=== PATIENT | female | born 1940 | race Caucasian/White ===

== ENCOUNTER 2020-03-27 20:45 | Inpatient (IN) | payer MEDICARE ==
[~2020-03-27] VITALS: Ht 167.6 cm; Wt 74.4 kg
[~2020-03-27 20:45] MED LIST: AML5T PO; APIX5TAB PO; ASPI81CH43 PO; ATOR20TA50 PO; LISI-275 PO; METO25TA5 PO; PANT40T PO
[2020-03-27 22:26] LABS: Basophils # (auto) 0 10 ^3/uL (0-0.2); Basophils % (auto) 0.4 % (0.0-2.0); Eosinophils # (auto) 0.1 10 ^3/uL (0-0.8); Eosinophils % (auto) 0.7 % (0.0-7.0); Hematocrit 39.2 % (36.0-46.0); Hemoglobin 13.2 g/dL (12.2-16.2); Lymphocytes # (auto) 0.4 10 ^3/uL (0.4-5.4); Lymphocytes % (auto) 4.5 % (10.0-50.0); Mean Corpuscular Hemoglobin 31.6 pg (28.0-32.0); Mean Corpuscular Hgb Conc. 33.6 g/dL (32.0-36.0); Monocytes # (auto) 0.5 10 ^3/uL (0-1.3); Monocytes % (auto) 5.6 % (0.0-12.0); Neutrophils # (auto) 8.4 10 ^3/uL (1.6-8.6); Neutrophils % (auto) 88.8 % (37.0-80.0); Platelet Count (auto) 291 10^3/uL (140-450); Red Blood Cells 4.17 10^6/uL (4.0-5.20); Red Cell Distribution Width 14.6 % (11.8-14.3); White Blood Cell 9.5 10^3/uL (4.4-10.8)
[2020-03-27 22:45] LABS: Albumin 3.2 g/dL (3.4-5.0); Calcium 8.3 mg/dL (8.5-10.1); Potassium 3.9 mmol/L (3.5-5.1)
[2020-03-27] MEDS ORDERED: ONDANSETRON HCL 4 MG/2 ML VIAL IV ONE (22:45)
[2020-03-27] MEDS ORDERED: SODIUM CHLORIDE 0.9% 1,000 ML IV ONE (22:45)
[2020-03-27] MEDS ORDERED: MORPHINE SULFATE 4 MG/ML SYR/VIAL IV ONE (22:45)
[2020-03-27 22:47] LABS: BUN/Creatinine Ratio 26.5; Bilirubin, Total 1.1 mg/dL (0.2-1.0); Total Protein 6.6 g/dL (6.4-8.2)
[2020-03-27 23:43] LABS: INR 1.06 (0.9-1.15); Partial Thromboplastin Time 28.5 sec (23.0-31.2)
[2020-03-28] MEDS ORDERED: ACETAMINOPHEN 325 MG TAB PO PRN
[2020-03-28] MEDS ORDERED: MORPHINE SULFATE 4 MG/ML SYR/VIAL IV PRN
[2020-03-28] MEDS ORDERED: MORPHINE SULF INJ 2 MG/ML SYRINGE 1ML IV PRN
[2020-03-28] MEDS ORDERED: DOCUSATE SOD 100 MG CAP PO PRN
[2020-03-28] MEDS ORDERED: ONDANSETRON HCL 4 MG/2 ML VIAL IV PRN
[2020-03-28] MEDS ORDERED: NITROGLYCERIN 0.4 MG SL TAB SL PRN
--- NOTE | 2020-03-28 01:15 | NUR ---
Patient Brought to Unit via Stretcher from ER w/ belongings Patient is AOx3. Lethargic and in pain. Patient having moments of confusion when asked questions. Patient pain level currently at 5/10. Patient pain level increased upon movement from stretcher to bed. Patient given [place] pain medication as prescribed for pain. Morphine is not due, patient aware but forgetful. Bed is locked in lowest position, no s/s of SOB but pain is present. Patient call light within reach, patient in room by nursing station for monitoring. Tele #[id number].
[2020-03-28] MEDS: SODIUM CHLORIDE 0.9% 1,000 ML IV SCH ×2 (01:25→16:40)
[2020-03-28] MEDS: HYDROcodone-ACET 5/325MG TAB PO PRN ×4 (01:25→22:42)
[2020-03-28 02:03] VITALS: BP 125/79
[2020-03-28 05:00] VITALS: BP 97/54
[2020-03-28 06:53] LABS: Basophils # (auto) 0 10 ^3/uL (0-0.2); Basophils % (auto) 0.6 % (0.0-2.0); Eosinophils # (auto) 0.1 10 ^3/uL (0-0.8); Eosinophils % (auto) 0.7 % (0.0-7.0); Hemoglobin 12.9 g/dL (12.2-16.2); Lymphocytes # (auto) 0.5 10 ^3/uL (0.4-5.4); Lymphocytes % (auto) 6.4 % (10.0-50.0); Mean Corpuscular Hemoglobin 32.1 pg (28.0-32.0); Mean Corpuscular Hgb Conc. 34.1 g/dL (32.0-36.0); Mean Corpuscular Volume 94.1 fL (80.0-100.0); Monocytes # (auto) 0.4 10 ^3/uL (0-1.3); Neutrophils # (auto) 6.7 10 ^3/uL (1.6-8.6); Neutrophils % (auto) 87.3 % (37.0-80.0); Platelet Count (auto) 272 10^3/uL (140-450); Red Blood Cells 4.04 10^6/uL (4.0-5.20); Red Cell Distribution Width 14.7 % (11.8-14.3); White Blood Cell 7.7 10^3/uL (4.4-10.8)
[2020-03-28 07:01] LABS: Albumin 2.9 g/dL (3.4-5.0)
[2020-03-28 07:10] LABS: BUN/Creatinine Ratio 24.7; Bilirubin, Total 1.1 mg/dL (0.2-1.0); Calcium 8.4 mg/dL (8.5-10.1)
--- NOTE | 2020-03-28 07:30 | NUR ---
Opening Shift Note Assumed care of patient, awake and alert. Respirations are even and unlabored. No S/S of distress/SOB. Bed is low, locked with 2x side rails up. Call light is within reach. Bed alarm on for safety. Instructed on POC and to call for assist PRN, will continue to monitor for changes Q1hr and PRN.
[2020-03-28 08:40] VITALS: BP 106/69
--- NOTE | 2020-03-28 08:50 | NUR ---
PT eval orders received, hold PT until cleared by ortho due to R femoral fracture
[2020-03-28] MEDS: ENOXAPARIN SOD 40 MG/0.4 ML SYRINGE SC SCH (10:00)
[2020-03-28] MEDS ORDERED: FAMOTIDINE 20 MG TAB PO SCH (10:00)
[2020-03-28] MEDS: ASCORBIC ACID 500 MG TAB PO SCH ×2 (10:00→22:11)
[2020-03-28] MEDS: MULTIPLE VITAMIN TAB PO SCH (10:00)
[2020-03-28] MEDS: PANTOPRAZOLE 40 MG/10 ML VIAL INJ IV SCH (10:00)
[2020-03-28] MEDS ORDERED: AMLO5TAB15 PO (10:39)
[2020-03-28 12:44] VITALS: BP 137/76
[2020-03-28] MEDS: KETOROLAC TROMETH 30 MG/ML 1ML VIAL IV PRN (12:47)
[2020-03-28 16:34] VITALS: BP 135/75
--- NOTE | 2020-03-28 18:54 | NUR ---
COVID swab Inhouse COVID swab walked to lab by resource nurse Bailey.
--- NOTE | 2020-03-28 19:15 | NUR ---
Opening Shift Note Assumed care of patient after receiving report from day RN. Patient is awake and alert with no S/S of distress/SOB or pain. Call light within reach, bed in lowest, locked position x2 side rails. Instructed on POC and to call for assist PRN, will continue to monitor for changes Q1hr and PRN.
[2020-03-28 21:49] VITALS: BP 116/70
--- NOTE | 2020-03-29 00:09 | NUR ---
Care endorsed to ALLAN Galarza RN.
--- NOTE | 2020-03-29 00:10 | NUR ---
Report Received Received report from LAYLA Lim and assumed care of patient. Patient is asleep at this moment, no signs or symptoms of distress noted. Will continue to monitor.
[2020-03-29 05:00] VITALS: BP 130/76
[2020-03-29] MEDS: HYDROcodone-ACET 5/325MG TAB PO PRN ×3 (05:28→17:28)
--- NOTE | 2020-03-29 05:28 | NUR ---
Pain Medication Administration Patient complaining of Right hip pain 10/10. Patient requesting Burden to be administered. Will administer pain medication per MD order and will continue to monitor.
--- NOTE | 2020-03-29 06:28 | NUR ---
Pain Level Reassessment Patient asleep for pain level reassessment. No signs or symptoms of distress noted. Will continue to monitor.
--- NOTE | 2020-03-29 07:30 | NUR ---
Opening Shift Note Assumed care of patient, awake and alert. Respirations are even and unlabored. No S/S of distress/SOB. Jesus catheter is hanging below bladder, is free of kinks and draining freely to gravity. Bed is low, locked with 2x side rails up. Call light is within reach. Bed alarm on for safety. Instructed on POC and to call for assist PRN, will continue to monitor for changes Q1hr and PRN.
[2020-03-29] MEDS: KETOROLAC TROMETH 30 MG/ML 1ML VIAL IV PRN ×2 (08:11→22:47)
[2020-03-29] MEDS: ASCORBIC ACID 500 MG TAB PO SCH ×2 (08:11→21:41)
[2020-03-29] MEDS: PANTOPRAZOLE 40 MG/10 ML VIAL INJ IV SCH (08:11)
[2020-03-29] MEDS: ENOXAPARIN SOD 40 MG/0.4 ML SYRINGE SC SCH (08:11)
[2020-03-29] MEDS: MULTIPLE VITAMIN TAB PO SCH (08:11)
--- NOTE | 2020-03-29 08:19 | NUR ---
Bharat Mayes at bedside Per MD, holding home medication Eliquis since patient is having surgery on Tuesday. Discussed other home medications with MD. Received orders to continue home medications. Orders read back to verify.
[2020-03-29 08:30] VITALS: BP 128/78
--- NOTE | 2020-03-29 09:05 | NUR ---
HOLD P.T. UNTIL AFTER SURGERY.
[2020-03-29] MEDS: SODIUM CHLORIDE 0.9% 1,000 ML IV SCH ×2 (09:20→17:27)
[2020-03-29 12:40] VITALS: BP 132/70
[2020-03-29 16:31] VITALS: BP 141/78
--- NOTE | 2020-03-29 19:15 | NUR ---
Opening Shift Note Assumed care of patient after receiving report from eduard, RN. Patient is awake and alert with no S/S of distress, SOB or pain noted at this time. Call light within reach, bed in lowest, locked position x2 side rails up for safety. Instructed on POC and to call for assist PRN, will continue to monitor for changes Q1hr and PRN.
[2020-03-29 22:00] VITALS: BP 149/77
[2020-03-30] MEDS: HYDROcodone-ACET 5/325MG TAB PO PRN ×4 (00:56→15:59)
--- NOTE | 2020-03-30 01:07 | NUR ---
Repositioned, pain medication Patient given PRN Roscoe for pain 10/10 at right hip fracture site, patient is screaming out in pain and crying. PRN Roscoe intended for moderate pain 4-6. Toradol for severe 7-10/10 pain not available at this time. Patient repositioned and low lit room for comfort and relaxation. Patient now resting comfortably. Will continue to monitor.
[2020-03-30 05:00] VITALS: BP 155/87
--- NOTE | 2020-03-30 07:30 | NUR ---
Opening Shift Note Assumed care of patient, awake and alert. Patient able to communicate needs. Respirations are even and unlabored. No S/S of distress/SOB. Bed is low, locked with 2x side rails up. Call light is within reach. Bed alarm on for safety. Instructed on POC and to call for assist PRN, will continue to monitor for changes Q1hr and PRN.
[2020-03-30 08:30] VITALS: BP 138/85
[2020-03-30] MEDS: ENOXAPARIN SOD 40 MG/0.4 ML SYRINGE SC SCH (09:17)
[2020-03-30] MEDS: amLODIPine BESYLATE 5 MG TAB PO SCH (09:17)
[2020-03-30] MEDS: ASCORBIC ACID 500 MG TAB PO SCH ×2 (09:17→22:08)
[2020-03-30] MEDS: PANTOPRAZOLE 40 MG/10 ML VIAL INJ IV SCH (09:17)
[2020-03-30] MEDS: MULTIPLE VITAMIN TAB PO SCH (09:18)
[2020-03-30] MEDS: METOPROLOL TARTRATE 25 MG TAB PO SCH ×2 (09:18→22:00)
--- NOTE | 2020-03-30 09:21 | NUR ---
Dr. Bharat Mayes at bedside MD at bedside discussing POC with patient. Held Metoprolol due to decreased heart rate. MD aware of this nurse holding medication. No new orders received.
[2020-03-30 12:10] VITALS: BP 154/91
[2020-03-30] MEDS: KETOROLAC TROMETH 30 MG/ML 1ML VIAL IV PRN ×2 (13:35→19:49)
--- NOTE | 2020-03-30 14:13 | NUR ---
Nutrition Assessment Notes Please refer to link for full assessment notes. Est Energy needs: 7472-2870 kcals (20-23 kcal/kgBW) Est Protein needs: 1.0-1.1 gms/day (1.0-1.1 gm/kgBW) Will continue to monitor and reassess prn. Addendum: 03/30/20 at [address] Amended: Links added.
--- NOTE | 2020-03-30 14:43 | NUR ---
IV insertion IV access obtained, via clean sterile technique by inserting a 22 gauge catheter at the right hand. IV secured properly. No trauma to site. Patient tolerated well.
[2020-03-30 16:35] VITALS: BP 146/80
[2020-03-30] MEDS: SODIUM CHLORIDE 0.9% 1,000 ML IV SCH (18:15)
[2020-03-30 22:00] VITALS: BP 128/75
[2020-03-31 05:00] VITALS: BP 157/96
[2020-03-31] MEDS: HYDROcodone-ACET 5/325MG TAB PO PRN ×2 (06:18→11:00)
--- NOTE | 2020-03-31 07:10 | NUR ---
Assumed care of patient resting in bed with eyes closed. Respirations even and unlabored at this time. Side rails up x 2, HOB elevated at least 30 degrees, call light is within reach and bed is locked in lowest position.
--- NOTE | 2020-03-31 07:10 | NUR ---
Closing Note Patient lying in bed, awake and alert. No s/s of distress. Call light within reach. Will endorse care to dayshift RN.
[2020-03-31 08:00] VITALS: BP 142/81
[2020-03-31] MEDS: MULTIPLE VITAMIN TAB PO SCH (10:00)
[2020-03-31] MEDS: ASCORBIC ACID 500 MG TAB PO SCH ×2 (10:00→22:29)
[2020-03-31] MEDS: METOPROLOL TARTRATE 25 MG TAB PO SCH ×2 (10:00→22:00)
[2020-03-31] MEDS: amLODIPine BESYLATE 5 MG TAB PO SCH (10:03)
[2020-03-31] MEDS: PANTOPRAZOLE 40 MG/10 ML VIAL INJ IV SCH (10:14)
[2020-03-31] MEDS: SODIUM CHLORIDE 0.9% 1,000 ML IV SCH (11:20)
[2020-03-31] MEDS ORDERED: PROPOFOL 10 MG/ML 20 ML IV ONE (11:49)
[2020-03-31] MEDS ORDERED: SODIUM CHLORIDE LOCK 10 ML ONE ×2 (11:49→13:52)
[2020-03-31] MEDS ORDERED: fentaNYL CITRATE 100 MCG/2 ML VL ONE ×2 (11:49→13:07)
[2020-03-31] MEDS ORDERED: ONDANSETRON HCL 4 MG/2 ML VIAL ONE (11:49)
[2020-03-31] MEDS ORDERED: MIDAZOLAM HCL 1MG/1ML-2 ML VIAL ONE (11:49)
[2020-03-31] MEDS ORDERED: MORPHINE SULF(PF) 0.5MG/ML 10ML VIAL ONE ×2 (11:49→13:36)
[2020-03-31] MEDS ORDERED: VANCOMYCIN HCL 1000 MG VL ONE (11:52)
[2020-03-31] MEDS: BUPIVACAINE 0.25% INJ 50ML VIAL ONE ×2 (11:58→14:43)
[2020-03-31] MEDS ORDERED: TRANEXAMIC ACID 0 ML ONE (11:58)
[2020-03-31 12:00] VITALS: BP 150/86
--- NOTE | 2020-03-31 12:09 | NUR ---
PATIENT TAKEN DOWN FOR PROCEDURE
[2020-03-31] MEDS ORDERED: ceFAZolin 1GM/50ML 100 ML IV ONE (12:13)
[2020-03-31] MEDS ORDERED: TETRACAINE 1% INJ 2 ML VIAL IJ ONE (12:30)
[2020-03-31] MEDS ORDERED: ETOMIDATE (2MG/ML) 20ML VIAL IV ONE (12:41)
[2020-03-31] MEDS ORDERED: SUCCINYLCHOLINE CHLORIDE 20 MG/ML 10ML VIAL IV ONE (12:46)
[2020-03-31] MEDS ORDERED: LIDOCAINE 1% (LOCAL ANESTH.) PF 5ml SDV ONE (12:46)
--- NOTE | 2020-03-31 12:47 | NUR ---
Pt is an alert and oriented female that is pleasant and able to communicate. Pt states she resides with her family and her daughter, Kymberly is her primary caregiver. Pt states she has a scooter, w/c and fww in the home that she does use and has no nurses coming to the home. Pt states she wants to return home upon discharge and is receptive to home health physical therapy and a bs for discharge planning. Pt states she has transportation home. Will continue to monitor and provide intervention as appropriate. Addendum: 03/31/20 at 1252 by DANITZA PISANO Amended: Links added.
[2020-03-31] MEDS ORDERED: ROCURONIUM 10MG/ML 10ML VIAL IV ONE (13:00)
[2020-03-31] MEDS ORDERED: KETOROLAC TROMETH 30 MG/ML 1ML VIAL ONE ×2 (13:36→14:15)
--- NOTE | 2020-03-31 13:45 | NUR ---
patient returned to room. no distress noted at this time. continue care.
[2020-03-31] MEDS ORDERED: ePHEDrine SULFATE 50 MG/ML AMP ONE (13:52)
[2020-03-31] MEDS: LACTATED RINGER'S 1,000 ML IV SCH (14:45)
[2020-03-31] MEDS: ceFAZolin 1GM/50ML 50 ML IV SCH ×3 (14:45→22:30)
[2020-03-31] MEDS ORDERED: NALOXONE HCL 0.4 MG/ML VIAL IV PRN (15:00)
[2020-03-31] MEDS ORDERED: ONDANSETRON HCL 4 MG/2 ML VIAL IV PRN (15:00)
[2020-03-31] MEDS ORDERED: HYDROmorphone HCL 2 MG/ML VL IV PRN (15:00)
[2020-03-31 17:00] VITALS: BP 137/88
--- NOTE | 2020-03-31 19:11 | NUR ---
ENDORSED CARE TO NOC SHIFT RN
--- NOTE | 2020-03-31 19:20 | NUR ---
Opening Shift Note Assumed care of patient. Patient laying on left side w/ HOB at 30 degrees. No pain noted at this time. Patient able to communicate needs. Respirations are even and unlabored. No S/S of distress/SOB. Right Hip bandage site is dry and intact. Bed is low, locked with 2x side rails up. Call light is within reach. Bed alarm on for safety. Instructed on POC and to call for assist PRN, will continue to monitor for changes Q1hr and PRN.
--- NOTE | 2020-03-31 20:00 | NUR ---
IV removal - Right Hand IV Leaking IV DC'd with sterile technique, catheter fully intact. Pressure dressing applied to site. Patient tolerated procedure well.
--- NOTE | 2020-03-31 20:30 | NUR ---
IV insertion IV access obtained, via clean sterile technique by inserting 22 gauge catheter at right forearm after 3 attempt(s). IV secured properly. No trauma to site. Patient tolerated procedure well.
[2020-03-31] MEDS: HYDROmorphone HCL 2 MG/ML VL IV PRN (20:38)
[2020-03-31] MEDS: SODIUM CHLOR 0.9% PF (SALINE LOCK) 10ML VIAL/SYR IV SCH (22:13)
[2020-03-31] MEDS: DOCUSATE SOD 100 MG CAP PO SCH (22:30)
[2020-03-31 22:32] VITALS: BP 121/73
[2020-04-01] MEDS: LACTATED RINGER'S 1,000 ML IV SCH ×3 (01:00→20:31)
[2020-04-01] MEDS: SODIUM CHLORIDE 0.9% 1,000 ML IV SCH (04:09)
[2020-04-01] MEDS: ceFAZolin 1GM/50ML 50 ML IV SCH (04:33)
[2020-04-01] MEDS: HYDROmorphone HCL 2 MG/ML VL IV PRN ×5 (04:33→20:39)
--- NOTE | 2020-04-01 05:05 | NUR ---
IV removal - RIGHT FOREARM INFILTRATED IV DC'd with sterile technique, catheter fully intact. Pressure dressing applied to site. Patient tolerated procedure well. Patient arm elevated to reduce infiltration site swelling. NOTE:
--- NOTE | 2020-04-01 05:08 | NUR ---
IV insertion IV access obtained, via clean sterile technique by inserting 24 gauge catheter at LEFT UPPER ARM after 3 attempt(s). IV secured properly. No trauma to site. Patient tolerated procedure well.
[2020-04-01 05:22] VITALS: BP 124/79
[2020-04-01] MEDS: SODIUM CHLOR 0.9% PF (SALINE LOCK) 10ML VIAL/SYR IV SCH ×3 (05:36→21:46)
[2020-04-01 07:06] LABS: Hematocrit 36.5 % (36.0-46.0); Hemoglobin 12.3 g/dL (12.2-16.2)
[2020-04-01 07:25] LABS: Potassium 4.3 mmol/L (3.5-5.1)
--- NOTE | 2020-04-01 07:25 | NUR ---
ASSUMED CARE OF PATIENT RESTING WITH EYES CLOSED. RESPIRATIONS EVEN AND UNLABORED AT THIS TIME. SIDE RAILS UP X 2, HOB ELEVATED AT LEAST 30 DEGREES, CALL LIGHT IS WITHIN REACH AND BED LOCKED IN LOWEST POSITION.
[2020-04-01 07:35] LABS: Albumin 2.5 g/dL (3.4-5.0); BUN/Creatinine Ratio 40.8; Bilirubin, Total 0.5 mg/dL (0.2-1.0); Calcium 8.3 mg/dL (8.5-10.1); Total Protein 5.7 g/dL (6.4-8.2)
[2020-04-01 09:00] VITALS: BP 143/82
--- NOTE | 2020-04-01 09:24 | NUR ---
I called [facility] [employer] Romi [phone]-she said we can use [employer] for DME-I faxed her the order for christin and STEPHANIE.
[2020-04-01] MEDS ORDERED: ENOXAPARIN SOD 40 MG/0.4 ML SYRINGE SC SCH (10:00)
--- NOTE | 2020-04-01 10:24 | NUR ---
DR DAVISON AT BEDSIDE. ORDERS RECEIVED FOR DILAUDID 0.5MG Q4HR PRN FOR SEVERE PAIN.
[2020-04-01] MEDS ORDERED: HYDROmorphone HCL 2 MG/ML VL IV PRN (10:30)
[2020-04-01] MEDS: PANTOPRAZOLE 40 MG/10 ML VIAL INJ IV SCH (10:35)
[2020-04-01] MEDS: DOCUSATE SOD 100 MG CAP PO SCH ×2 (10:35→21:50)
[2020-04-01] MEDS: MULTIPLE VITAMIN TAB PO SCH (10:36)
[2020-04-01] MEDS: amLODIPine BESYLATE 5 MG TAB PO SCH (10:36)
[2020-04-01] MEDS: METOPROLOL TARTRATE 25 MG TAB PO SCH ×2 (10:36→21:50)
[2020-04-01] MEDS: ASCORBIC ACID 500 MG TAB PO SCH ×2 (10:37→21:50)
--- NOTE | 2020-04-01 11:13 | NUR ---
CLARIFIED PAIN MEDICATION ORDER WITH DR DAVISON THAT PATIENT SHOULD BE ON 0.5MG OF DILAUDID FOR MILD PAIN AND THAT ELIQUIS SHOULD BE RESCHEDULED FOR TOMORROW MORNING.
--- NOTE | 2020-04-01 12:48 | NUR ---
CLARIFIED IV FLUID ORDER WITH DR DAVISON. ORDERS RECEIVED TO DISCONTINUE NORMAL SALINE AT 60ML/S FOR THIS PATIENT.
[2020-04-01 13:00] VITALS: BP 145/86
--- NOTE | 2020-04-01 13:44 | NUR ---
D/C Planning Per social service service consult for home health physical therapy, walker and bedside commode. Faxed clinical information to [facility] and [facility]. Per Nayeli with [facility] patient has been accepted and service to start within 24-48hrs upon d.c day. Per Kami with [facility] patient does not meet criteria for a bedside commode stating they provided her with a rental wheelchair and if patient would like a bedside commode she will have to return the wheelchair. Per SW II notes patient has a walker for home use. Informed patient and nurse Gagandeep who was at bedside. Patient ask me to speak to her daughter Kymberly. Placed call to Kymberly to informed her about the bedside commode. Per Kymberly if patient needs a bed side commode she will buy patient one.
--- NOTE | 2020-04-01 14:06 | NUR ---
D/C planning faxed updated order to [facility] for safety evaluation and physical therapy.
[2020-04-01 17:00] VITALS: BP 144/81
--- NOTE | 2020-04-01 17:30 | NUR ---
WOUND CARE NOTE: Wound care in to see patient per wound care request regarding low Sahil score of 12, putting patient to high risk for skin breakdown. Patient is 80 years old female with admitting diagnosis of Rt Femoral neck Fracture. Patient is resting in bed in Rm. 219B. Patient is awake,alert and oriented. Patient reports of pain, LAYLA Donis at bedside to medicate patient. Skin/wound assessment done with the assistance of patient's nurse, LAYLA Donis. Patient is one day s/p R Hip hemiarthroplasty by Dr. Coleman. Patient's R hip noted with 13 cm well approximated incision with 21 deepti intact. Incision has mild erythema,no drainage/odor noted, left open to air. Patient is incontinent of urine and wet the care pad. Mild moisture associated dermatitis noted to bilateral buttocks. Ro care given, care pad changed and applied Z Guard cream to sacral, buttocks. Repositioned patient for comfort facing her left , redistributed pressure points with pillows. Patient tolerated well. bed in low position, call sweeney within reach, bed alarm on. RECOMMENDATION: Nursing to continue with BID/PRN cleaning and application of Barrier cream to sacral, buttocks as preventative, frequent turning and repositioning schedule as condition permits, redistribute pressure points with pillows, continue monitoring by wound care while Sahil score is <18. Addendum: 04/01/20 at 1831 by Ruba Espana RN Amended: Links added.
--- NOTE | 2020-04-01 19:06 | NUR ---
ENDORSED CARE TO NOC SHIFT RN
--- NOTE | 2020-04-01 19:35 | NUR ---
Opening Shift Note Assumed care of patient, awake and alert. No S/S of distress/SOB noted. Instructed on POC and to call for assist PRN. Bed is in lowest locked position with bedrails up x2 and call light is within reach.
[2020-04-01 22:11] VITALS: BP 147/87
[2020-04-02] MEDS: HYDROmorphone HCL 2 MG/ML VL IV PRN ×5 (02:25→20:15)
[2020-04-02 04:44] VITALS: BP 139/83
[2020-04-02] MEDS: LACTATED RINGER'S 1,000 ML IV SCH ×2 (06:06→17:14)
[2020-04-02] MEDS: SODIUM CHLOR 0.9% PF (SALINE LOCK) 10ML VIAL/SYR IV SCH ×3 (06:06→22:03)
[2020-04-02 06:39] LABS: Hematocrit 35.1 % (36.0-46.0); Hemoglobin 11.8 g/dL (12.2-16.2)
--- NOTE | 2020-04-02 07:00 | NUR ---
OPENING SHIFT NOTE RECEIVED REPORT ON THE PATIENT. AWAKE LYING IN BED. PATIENT SHOWS NO SIGNS OF DISTRESS AT THIS TIME. DISCUSSED THE PLAN OF CARE WITH THE PATIENT. BED IN LOWEST POSITION, SIDE RAILS UP X2, AND THE CALL LIGHT IS WITHIN REACH.
[2020-04-02 09:00] VITALS: BP 133/84
[2020-04-02] MEDS: PANTOPRAZOLE 40 MG/10 ML VIAL INJ IV SCH (09:57)
[2020-04-02] MEDS: DOCUSATE SOD 100 MG CAP PO SCH ×2 (09:57→22:03)
[2020-04-02] MEDS: APIXABAN 5 MG TAB PO SCH ×2 (09:58→22:03)
[2020-04-02] MEDS: amLODIPine BESYLATE 5 MG TAB PO SCH (09:58)
[2020-04-02] MEDS: METOPROLOL TARTRATE 25 MG TAB PO SCH ×2 (09:58→22:00)
[2020-04-02] MEDS: MULTIPLE VITAMIN TAB PO SCH (09:58)
[2020-04-02] MEDS: ASCORBIC ACID 500 MG TAB PO SCH ×2 (09:59→22:03)
[2020-04-02 11:51] VITALS: BP 112/63
--- NOTE | 2020-04-02 12:42 | NUR ---
Nutrition Followup Note: Wt: 78.9kg Pt was sleeping with no family by bedside. pt had sx for her femoral fx on 03/31. pt with no distress noted. pt is currently on regular diet with inadequate PO of < 50% x 4 per RN doc Est Energy needs: 7066-6069 kcals (20-23 kcal/kgBW), Est Protein needs: 1.0-1.1 gms/day (1.0-1.1 gm/kgBW). Will continue to monitor and reassess prn. Labs: NO new labs today 04/01: ALB 2.5 L CA 8.3 L BUN 20 H BM: Pt has no BM reported per RN doc Skin: BS 16 mod risk, full details in clinical care manager note PES: Altered nutrition related lab values r.t current chronic medical condition aeb dyslipidemia, hypocalcemia, hypoalbuminemia Comments: will continue to monitor PO intake skin status, labs. F/u mod 3-5 days Rec: 1) refer to [facility] charrer on DC 2) consider ensure enlive 1 carton bid if PO continues to be low. 3) continue current plan of care
[2020-04-02 16:38] VITALS: BP 128/69
[2020-04-02 21:46] VITALS: BP 110/73
--- NOTE | 2020-04-02 22:26 | NUR ---
Hospitalist notified fo held medication: Hospitalist molina notified of held medication Lopressor due to patients low heart rate of 53. Patient is asymptomatic. No new orders received. Continue care.
[2020-04-03] MEDS: LACTATED RINGER'S 1,000 ML IV SCH (02:45)
[2020-04-03] MEDS: HYDROmorphone HCL 2 MG/ML VL IV PRN (03:23)
[2020-04-03 05:08] VITALS: BP 134/64
[2020-04-03] MEDS: SODIUM CHLOR 0.9% PF (SALINE LOCK) 10ML VIAL/SYR IV SCH (05:35)
[2020-04-03 06:03] LABS: Hematocrit 34.5 % (36.0-46.0); Hemoglobin 11.8 g/dL (12.2-16.2)
--- NOTE | 2020-04-03 07:30 | NUR ---
Opening Shift Note Assuming care of patient at this time. Patient is awake and alert. Patient denies pain. Patient shows no signs or symptoms of distress or shortness of breath. Bed is locked and lowered with side rails up x2. Instructed patient on the plan of care for today and to call for assistance as needed. Call light within reach. Will continue to round hourly and as needed.
[2020-04-03 08:53] VITALS: BP 139/77
--- NOTE | 2020-04-03 10:57 | NUR ---
D/C Planning Regarding social service consult for home health physical therapy, safety evaluation and medication management. Faxed updated clinical information to [facility]. Per Nayeli with [facility] order has been received and service to start within 24-48hrs upon d.c day.
[2020-04-03] MEDS: ASCORBIC ACID 500 MG TAB PO SCH (10:58)
[2020-04-03] MEDS: DOCUSATE SOD 100 MG CAP PO SCH (10:58)
[2020-04-03] MEDS: PANTOPRAZOLE 40 MG/10 ML VIAL INJ IV SCH (10:59)
[2020-04-03] MEDS: APIXABAN 5 MG TAB PO SCH (10:59)
[2020-04-03] MEDS: METOPROLOL TARTRATE 25 MG TAB PO SCH (11:00)
[2020-04-03] MEDS: amLODIPine BESYLATE 5 MG TAB PO SCH (11:00)
[2020-04-03] MEDS: MULTIPLE VITAMIN TAB PO SCH (11:00)
[2020-04-03 11:11] VITALS: BP 139/77
[2020-04-03 13:00] VITALS: BP 127/83
--- NOTE | 2020-04-03 15:12 | NUR ---
Discharge Discharge instructions given as ordered. Encourage to follow up with PMD as instructed. All questions and concerns addressed. Patient verbalized understanding. Medication reconciliation form completed and copy given to patient. IV removed with catheter intact, pressure dressing applied. Telemetry unit returned to ICU. Patient taken to vehicle via wheelchair with all personal belongings, accompanied by staff. No distress noted at time of departure. Addendum: 04/03/20 at 1514 by SACHI WALTON RN RN patient left at approximately 1320
== END 2020-04-03 13:20 | disposition home health service (06) | DRG 522 ==
LOC: ER 20:45 → EDBD 20:45 → TELE 20:46 → TELE-CENTR 03-28 01:15
PROVIDERS: ADMIT Nurse Practitioner Family; ATTEND Family Medicine
PROC: 0SRR0J9 Replacement of Right Hip Joint, Femoral Surface with Synthetic Substitute, Cemented, Open Approach (ICD-10-PCS; 2020-03-31)
PROC: 0KQN0ZZ Repair Right Hip Muscle, Open Approach (ICD-10-PCS; principal; 2020-03-31 12:46)
DX: S72.011A Unspecified intracapsular fracture of right femur, initial encounter for closed fracture (principal); K21.9 Gastro-esophageal reflux disease without esophagitis; E78.5 Hyperlipidemia, unspecified; Z20.828 Contact with and (suspected) exposure to other viral communicable diseases; F32.9 Major depressive disorder, single episode, unspecified; I10 Essential (primary) hypertension; V00.831A Fall from motorized mobility scooter, initial encounter; I27.21 Secondary pulmonary arterial hypertension; S76.011A Strain of muscle, fascia and tendon of right hip, initial encounter; I25.2 Old myocardial infarction; Z86.711 Personal history of pulmonary embolism; Z87.442 Personal history of urinary calculi; Y92.008 Other place in unspecified non-institutional (private) residence as the place of occurrence of the external cause; Y93.I9 Activity, other involving external motion; Y99.8 Other external cause status
CPT/HCPCS: 36415; 51702; 70450; 71045; 71250; 72125; 72131; 72170; 73501; 73560; 74176; 80053; 80061; 85014; 85018; 85025; 85610; 85730; 86850; 86900; 86901; 96361; 96374; 96375; 97110; 97530; A4565; C9113; G0378; J0330; J0690; J1885; J2250; J2405; J2704; J3490

== ENCOUNTER 2022-05-04 11:44 | Emergency (ER) | payer MEDICARE ==
[~2022-05-04] VITALS: Ht 157.5 cm; Wt 63.0 kg
[~2022-05-04 11:44] MED LIST changes: -AML5T PO; +AMLO-489 PO; -ASPI81CH43 PO; -ATOR20TA50 PO; -PANT40T PO
[2022-05-04 12:06] VITALS: BP 123/67
== END 2022-05-04 15:08 | disposition left against medical advice (07) ==
LOC: ER 11:44
DX: M25.532 Pain in left wrist (principal); Z53.21 Procedure and treatment not carried out due to patient leaving prior to being seen by health care provider